=== PATIENT | female | born 1985 | race Caucasian/White ===

== ENCOUNTER → 2017-01-16 | Outpatient (REF) ==
[~2017-01-16] MED LIST: PRENATAL1 TA1 PO
== END ==
LOC: WSOH 11:00
DX: Z02.89 Encounter for other administrative examinations (principal)

== ENCOUNTER → 2017-03-01 | Outpatient (REF) | LOC: WSOH 17:30 | DX: Z02.89 Encounter for other administrative examinations (principal) ==

== ENCOUNTER 2019-01-06 15:54 | Emergency (ER) | payer OTHER ==
[~2019-01-06] VITALS: Ht 172.7 cm; Wt 90.9 kg
[2019-01-06 18:19] VITALS: BP 146/90; PULSE 88; TEMP 98.5
[2019-01-06] MEDS ORDERED: MIRENA52 MG IY (18:21)
[2019-01-06 19:14] LABS: HIV 1/2 Antibodies Non-Reactive; HIV-1p24 Antigen Non-Reactive
[2019-01-07 17:36] LABS: HEPATITIS B SURFACE ANTIGEN Negative (Negative)
[2019-01-07 17:37] LABS: HEPATITIS C VIRUS ANTIBODY Negative (Negative)
== END 2019-01-06 17:00 | disposition home or self-care (01) ==
LOC: COL.ER 15:54
PROVIDERS: Family Medicine
DX: S69.92XA Unspecified injury of left wrist, hand and finger(s), initial encounter (principal); W46.1XXA Contact with contaminated hypodermic needle, initial encounter

== ENCOUNTER 2019-01-08 14:15 | Outpatient (RCR) | payer OTHER ==
[~2019-01-08 14:15] MED LIST changes: +MIRENA52 MG IY
== END 2019-02-21 13:25 | disposition home or self-care (01) ==
LOC: WSOH 14:15
DX: S61.233A Puncture wound without foreign body of left middle finger without damage to nail, initial encounter (principal); Z77.21 Contact with and (suspected) exposure to potentially hazardous body fluids; Y92.239 Unspecified place in hospital as the place of occurrence of the external cause; Y99.0 Civilian activity done for income or pay

== ENCOUNTER → 2020-09-08 | Outpatient (CLI) | payer OTHER | LOC: COL.RAD 09-06 12:45 | DX: E01.0 Iodine-deficiency related diffuse (endemic) goiter (principal) ==

== ENCOUNTER → 2020-11-25 | Outpatient (CLI) | payer OTHER | LOC: COL.LAB 10:53 | DX: E01.0 Iodine-deficiency related diffuse (endemic) goiter (principal) ==